=== PATIENT | male | born 1940 | race Caucasian/White ===

== ENCOUNTER 2016-09-12 13:28 | Inpatient (IN) | payer MEDICARE, OTHER ==
[~2016-09-12] VITALS: Ht 182.9 cm; Wt 103.0 kg
[~2016-09-12 13:28] MED LIST: ABREVA2 GM TP; ANTIVERT-DPS25 MG OG; AUGMENTIN250 MG/51 OG; COMPOUND PO; DULCOLAX-DPS10 MG PR; DUONEB DPS3 ML IH; KEPPRA DPS500 MG/51 OG; LOVENOX DP40 MG/0.4 SQ; LUPRON DEPOT22.5 MG SQ; MAALOX DPS30 ML OG; MYCOSTATIN PWD15 GM TP; NOVOLOG100 UNIT/2 SQ; PEPCID DPS20 MG OG; ROBITUSSIN200 MG/10 GT; SURFAK DPS240 MG PO; THERA-M1 EACH PO; TYLENOL DPS325 MG OG; TYLENOL DPS325 MG PO; [UNRECOGNIZED DRUG - OTHER] OG
--- NOTE | 2016-09-24 19:07 | NUR ---
DAY SHIFT SUMMARY: MOD ASSIST FOR EATING, STILL IS TUBE FED TO SUPPLEMENT; SEE OT DOC FOR GROOMING,AND DRESSING; TOTAL ASSIST FOR TOILETING, BLADDER MANAGEMENT, BED/W/C/CHAIR TRANSFERS USING SIT TO STAND LIFT; TOTAL ASSIST FOR W/C PROPULSION
--- NOTE | 2016-09-28 19:43 | NUR ---
09/27/16 DAY SHIFT SUMMARY: MIN ASSIST FOR EATING, MAX ASSIST FOR GROOMING, TOTAL ASSIST FOR DRESSING, TILETING, BLADDER MANAGEMENT W/CATH, TRANSFERS AND W/C PROPULSION.
--- NOTE | 2016-09-28 19:44 | NUR ---
DAY SHIFT SUMMARY: NO CHANGE FROM 09/17 EXCEPT PT WAS TRANSFERRED INTO SHOWER AND SHOWERED TODAY AND REQUIRED TOTAL ASSIST.
--- NOTE | 2016-10-01 19:06 | NUR ---
DAY SHIFT SUMMARY: ATE 100% MEALS, JUST WATER PER G TUBE; SEE OT NOTES/FIM FOR GROOMING AND DRESSING; TOTAL ASSIST FOR TOILETING AND BLADDER (CATH) MANAGMENT, BED/W/C/TOILET TRANSFERS AND W/C PROPULSION
[2016-10-10] MEDS ORDERED: LEXAPRO DPS20 MG PO (16:25)
[2016-10-10] MEDS ORDERED: VITAMIN D31000 UNIT PO (16:26)
[2016-10-10] MEDS ORDERED: SENOKOT DPS8.6 MG PO (16:26)
[2016-10-10] MEDS ORDERED: [UNRECOGNIZED DRUG - OTHER] PO (16:26)
[2016-10-10] MEDS ORDERED: MAALOX DPS30 ML PO (16:27)
[2016-10-10] MEDS ORDERED: SENOKOT S1 TAB PO (16:27)
[2016-10-10] MEDS ORDERED: OCEAN NASAL MIS45 ML NS (16:28)
[2016-10-10] MEDS ORDERED: TYLENOL DPS325 MG PO (16:28)
[2016-10-10] MEDS ORDERED: TINACTIN 1% PWD45 GM TP (16:29)
[2016-10-10] MEDS ORDERED: DULCOLAX-DPS10 MG PO (16:29)
[2016-10-10] MEDS ORDERED: SPORTS CREAM85 GM TP (16:29)
[2016-10-10] MEDS ORDERED: NORMAL SALINE FL5 ML IV (16:31)
[2016-10-10] MEDS ORDERED: MERREM1 GM IV (16:31)
--- NOTE | 2016-10-27 01:12 | CO ---
ADMIT: 09/12/2016 RM/LOC: 616 [facility] MR#: [id number] [id number] [address] [place] [address] Consultation SEX: M AGE: 75 : 1940 DATE OF CONSULTATION: 10/02/2016 ATTENDING PHYSICIAN: Jorge L Solomon CONSULTING PHYSICIAN: Toña Brandt MD CHIEF COMPLAINT: Tachycardia and tachypnea with low-grade fever, asked to assist with medical management. HISTORY OF PRESENT ILLNESS: Mr. Frost is a very nice 75-year-old white gentleman who had been healthy until June of 2016. At that time, he presented to the [facility] complaining of being off balance with some memory issues and just not feeling himself. A CT scan and subsequent MRI showed a 4.5 x 5.3 x 5 cm mass with some hydrocephalus. 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 He underwent resection in July of 2016 but it was not able to be completely excised due to the fact that had a vein running around it and some of its adherence to vital structures. The plan was to do a staged procedure with a second attempt at resection taking place in September of 2016. Unfortunately, this was not successful because of his instability. He has been in and out of rehab up here at [facility]. He came after his first resection and returned to inpatient care when he was found to have a rather significant group A strep bacteremia and sepsis. He had quite a bit of angioedema and actually required temporary tracheostomy placement as well as a PEG tube. He recovered from that course of events and was sent to [facility] for rehab. He then returned to facility here for continued rehab and has been progressing relatively well. On the day I was consulted, he was noted to be breathing a little differently, tachypneic at a rate 26. He did have a low-grade fever, less than 100.5. Due to his history of rapidly becoming very ill with group A strep, I was consulted for assistance in his healthcare. Evaluation revealed nothing significant other than the urinary tract infection. I did get a CT angiogram with his history of DVT and the fact that he has been somewhat immobile and tachypneic, but this was negative. He currently is feeling fine. He has no complaints and really did not feel bad yesterday. 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 Status post right-sided occipital craniotomy with attempted resection and staged procedure with recurrent attempt 09/19 which was unsuccessful. DVT right superficial vein 07/07/2016, with IVC filter. History of prostate cancer about 10 years ago, status post radical prostatectomy. Cholelithiasis on CT scan, June 2016. Neurogenic bladder with Xavier. Previous trach/PEG - resolved but weaning PEG. History of group A strep sepsis 07/18. MEDICATIONS: 1. Mycelex troches 10 mg q.i.d. 2. Ritalin 10 mg at 8:00 and noon. 3. Senokot daily. 4. Vitamin D 50,000 weekly. ADMIT: 09/12/2016 RM/LOC: 616 [facility] MR#: [id number] [address] [place] [address] Consultation SEX: M AGE: 75 : 1940 5. Vitamin D 1000 International Units daily. 6. Lovenox 40 mg subcu every 24 hours. 7. Cipro 400 IV q.12 which was just started yesterday. ALLERGIES: NONE KNOWN ALTHOUGH HE DOES HAVE AN INTOLERANCE TO STATINS. SOCIAL HISTORY: . 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 He was in the [employer] and has [employer] benefits. Lives in [place]. Nonsmoker and nondrinker. FAMILY HISTORY: Father with an [place]. Mother with breast cancer. Brother with prostate cancer. REVIEW OF SYSTEMS: He has been feeling okay. Left side is still weak. Continues to have the Xavier. Did have gallstones found on a CT scan, but no symptoms at this time. PHYSICAL EXAMINATION: VITAL SIGNS: Per nursing this morning and show his current temp is 97.9, pulse 95, respirations 18, blood pressure 109/66, and sats 93% on room air. (T-max was 100.2 last evening at about 7 in the evening). GENERAL: This is a well-developed, well-nourished white male, sitting in a wheelchair in his room in no distress. There is a little bit allan-neglect as I go over to that side to talk with him. SKIN: Warm and dry. No suspicious lesions. HEENT: Normocephalic, atraumatic. Anicteric. Mucous members are moist. NECK: Supple. LUNGS: Clear to auscultation. CARDIOVASCULAR: Regular without murmur or gallop. No ectopy. ABDOMEN: Soft. EXTREMITIES: With trace edema. IMPRESSION: 1. Meningioma status post unsuccessful complete resection x2. 2. Low-grade temperature, likely urinary tract infection. 3. Deep venous thrombosis right superficial vein 07/07/2015, with IVC filter and subcu Lovenox. 4. History of prostate cancer. 5. Cholelithiasis. 6. Neurogenic bladder. DISCUSSION: I think the culprit is probably his urine. I did get a CTA due to his tachycardia and I did not realize he had right lower extremity DVT, so it is probably good we checked that. Things were fine and his chest CT actually looked better than it did previously. He really did not feel too bad, which is good. I think getting on Cipro and see what the culture actually shows it is what we will do from here. He otherwise looks very good and I think he is just fine. He can stay on the unit. ADMIT: 09/12/2016 RM/LOC: 616 [facility] MR#: [id number] [id number] [address] [place] [address] Consultation SEX: M AGE: 75 : 1940 PLAN: 1. Social Work to check into the [facility] see that is even an option if he is service connected. 2. IV fluids were given during the night, now decreased. Watch urine output. 3. Cipro 400 IV q.12. 4. See chart. Toña Brandt MD/ carin JOB #: [id number] CC: Jorge L Solomon, Attending Physician Víctor Lindsey, Family Physician MD Tha Soto MD Karen M Kulp, NP
--- NOTE | 2016-11-11 09:48 | DS ---
ADMIT: 09/12/2016 RM/LOC: 616 [facility] MR#: [id number] [id number] [address] [place] [address] [place] General Discharge Summary SEX: M AGE: 75 : 1940 ADMISSION DATE: 09/12/2016 DISCHARGE DATE: 10/09/2016 DISCHARGE DIAGNOSES: Brain dysfunction 02.1, nontraumatic, D32.0 benign neoplasm of cerebral meninges, onset 07/04/2016, comorbid conditions per initial H and P. Other diagnoses per hospital course below. HOSPITAL COURSE: Please see my initial H and P for details prior to transfer to the IRU. In brief, he had a pineal region meningioma status post only partial resection with a right-sided craniotomy on 07/04/2016 and suboccipital craniectomy on 09/03/2016 with impaired cognition, left homonymous hemianopsia, dysarthria, dysphagia, trach status resolving, PEG status on bolus tube feeds, IVC status resolving, right lower extremity DVT, acute on chronic urinary incontinence, neurogenic bladder, generalized weakness with asymmetric left greater than right-sided weakness, and balance difficulty and self-care and walking, stage II sacral pressure ulcer. Pain and bowel regimen were adjusted on transfer, and Lovenox was started for DVT prophylaxis, EdemaWear for lower limb edema, and compression gloves for upper limb edema. Pulmonary was asked for duration on steroids and antibiotics and breathing treatments. Lab was monitored regularly. Dietitian followed optimize nutrition. Pharmacy followed to optimize medication management. Stage II pressure ulcer addressed, see Wound Care notes for details. Mucinex started for clearing secretions. On 09/15/2016, vancomycin and Zosyn discontinued along with Levaquin discontinued. Mucomyst and Solu-Medrol discontinued. IV and central line discontinued on 09/15/2016. Accu-Cheks sliding scale insulin, Pepcid, Surfak, Glucagon, Glutose, Nitrostat, and all of IV medications and IV discontinued on 09/15/2016, no longer necessary. Iron deficiency treated with Feosol liquid through G-tube with vitamin C for better absorption. Vitamin D deficiency replaced. GERD treated with ranitidine and liquid. Cough treated with Robitussin. Cognition treated with Ritalin. Depression treated with Ritalin. Hallucination treated with Ritalin that was discontinued. Proventil discontinued. Encouraged incentive spirometry. EzPAP done p.r.n. Pepcid, Robitussin, Senokot all discontinued. [place] nasal mist p.r.n. Tolnaftate powder for tinea pedis and Lotrisone cream as well. Proventil discontinued. Ritalin restarted. UA with micro, no culture due to Xavier status. Developed delirium. Xavier system changed out due to concern for UTI. Xavier associated. Tube feeds were adjusted based on p.o. intake. Ritalin was increased due to some benefit. Glycerin suppository tried instead of Dulcolax for bowel program. Medications changed to p.o. on 09/25/2016. Ritalin increased to 10 mg to help with cognition. Watched for delirium and hallucinations, which did not develop or if they did, they are mild and did not cause too much problem. Mycelex Yudelka for thrush. Tube feeding discontinued on 10/01/2016 and just did flushes for poor fluid intake. The patient was interrogated for sepsis protocol on 10/01/2016. Workup was done. Dr. Brandt was consulted, appreciate assistance. CTA of chest and ABGs were done. Cipro 400 mg IV q.12 and Azactam IV also. IV fluids decreased and then discontinued once infused. Infection attributed to UTI bacteremia. Xavier discontinued on 10/02/2016 voiding trial due to the UTI and bacteremia. IV iron for iron deficiency persistent. Failed oral replacement and continued ADMIT: 09/12/2016 RM/LOC: 616 [facility] MR#: [id number] [address] [address] [place] [address] [place] General Discharge Summary SEX: M AGE: 75 : 1940 anemia. PVRs came back normal. Ritalin discontinued and switched to Lexapro before discharge, was given Merrem IV for 5 days. Ritalin was restarted. PEG tube was discontinued prior to transfer to the [facility] facility. Dr. Tejada pulled that, and he did that on the day of discharge on 10/09/2016. The patient was medically stable at the time of discharge. Please see IRU interdisciplinary discharge summary for details regarding progress in therapy. DISCHARGE DISPOSITION: [facility] facility for continued subacute rehabilitation. DISCHARGE MEDICATIONS: Please see discharge med rec. Merrem was started on 10/04/2016, and after discussion with Dr. Brandt, she recommended another 5 days of that after discharge. FOLLOWUP: Dr. Tha Lindsey on 10/24/2016. Jorge L Solomon MD/ carin JOB #: [id number] CC:
== END 2016-10-09 09:27 | DRG 949 ==
LOC: 6IRU 13:28
PROVIDERS: ADMIT Physical Medicine & Rehabilitation
PROC: F07Z9ZZ Gait Training/Functional Ambulation Treatment (ICD-10-PCS; principal; 2016-09-12)
PROC: F08Z3FZ Feeding/Eating Treatment using Assistive, Adaptive, Supportive or Protective Equipment (ICD-10-PCS; principal; 2016-09-12)
PROC: F08Z0FZ Bathing/Showering Techniques Treatment using Assistive, Adaptive, Supportive or Protective Equipment (ICD-10-PCS; principal; 2016-09-12)
PROC: F08Z2FZ Grooming/Personal Hygiene Treatment using Assistive, Adaptive, Supportive or Protective Equipment (ICD-10-PCS; principal; 2016-09-12)
DX: Z48.3 Aftercare following surgery for neoplasm (principal); C70.0 Malignant neoplasm of cerebral meninges; L89.152 Pressure ulcer of sacral region, stage 2; I82.401 Acute embolism and thrombosis of unspecified deep veins of right lower extremity; R78.81 Bacteremia; T83.511A Infection and inflammatory reaction due to indwelling urethral catheter, initial encounter; N39.0 Urinary tract infection, site not specified; D62 Acute posthemorrhagic anemia; R44.3 Hallucinations, unspecified; Z93.0 Tracheostomy status; R60.0 Localized edema; H53.462 Homonymous bilateral field defects, left side; R32 Unspecified urinary incontinence; R47.1 Dysarthria and anarthria; R13.10 Dysphagia, unspecified; Z93.1 Gastrostomy status; M62.81 Muscle weakness (generalized); R27.0 Ataxia, unspecified; N31.9 Neuromuscular dysfunction of bladder, unspecified; E78.5 Hyperlipidemia, unspecified; E55.9 Vitamin D deficiency, unspecified; K21.9 Gastro-esophageal reflux disease without esophagitis; R05 Cough; F32.9 Major depressive disorder, single episode, unspecified; B35.3 Tinea pedis; D50.9 Iron deficiency anemia, unspecified; K59.00 Constipation, unspecified; B37.9 Candidiasis, unspecified; Z85.46 Personal history of malignant neoplasm of prostate; Z79.818 Long term (current) use of other agents affecting estrogen receptors and estrogen levels